=== PATIENT | male | born 2000 | race African-American/Black ===

== ENCOUNTER 2020-01-08 17:05 | Emergency (ER) | payer MEDICAID ==
[~2020-01-08] VITALS: Ht 142.2 cm; Wt 54.4 kg
[2020-01-08 17:05] VITALS: BP_SYST 125
--- NOTE | 2020-01-08 17:05 | NUR ---
Placed in room 5. Placed on cafeteria monitor, blood pressure machine and pulse oximeter. To gown for exam. Side rails up. Report given to KASHIF Bernstein.
--- NOTE | 2020-01-08 17:15 | NUR ---
DR ADORNO IN TO ASSESS. PT CALM, ALERT, COOPERATIVE, NO DISTRESS, REFERRING TO HIS VOICES "THEY"
--- NOTE | 2020-01-08 17:30 | NUR ---
LABS AND EKG COMPLETED
[2020-01-08 17:32] LABS: BASOPHILS % (AUTO) 0.5 % (0.0-2.0); EOSINOPHILS % (AUTO) 0.4 % (0.0-4.0); HEMATOCRIT 46.6 % (36-54); HEMOGLOBIN 14.9 g/dL (14.0-18.0); LYMPHOCYTES # (AUTO) 2.2 K/uL (1.0-5.5); LYMPHOCYTES % (AUTO) 42.5 % (20.5-51.5); MEAN CORPUSCULAR HEMOGLOBIN 27 pg (27-31); MEAN CORPUSCULAR HGB CONC 32 % (32-36); MEAN CORPUSCULAR VOLUME 86 fL (79.0-98.0); MONOCYTES # (AUTO) 0.4 K/uL (0.0-1.0); MONOCYTES % (AUTO) 8.3 % (1.7-9.3); NEUTROPHILS # (AUTO) 2.5 K/uL (1.8-7.7); NEUTROPHILS % (AUTO) 48.3 % (40.0-70.0); PLATELET COUNT (AUTO) 119 K/uL (130-430); RED BLOOD CELL COUNT(AUTO) 5.44 MIL/uL (4.2-6.2); RED CELL DISTRIBUTION WIDTH 13.9 % (9.0-15.0); WHITE BLOOD COUNT (AUTO) 5.2 K/uL (4.8-10.8)
--- NOTE | 2020-01-08 17:48 | NUR ---
UP AMBULATING TO BATHROOM, CALM, ALERT, NAD
[2020-01-08 17:53] LABS: ANION GAP 7 (5-15); CALCIUM 8.9 mg/dL (8.4-11.0); CHLORIDE 102 mmol/L (98-107); CREATININE 1.15 mg/dL (0.55-1.30); GLUCOSE 81 mg/dL (70-99); POTASSIUM 4.3 mmol/L (3.5-5.1); SODIUM SERUM 137 mmol/L (136-145); UREA NITROGEN, BLOOD 12 mg/dL (8-21)
[2020-01-08 17:59] LABS: ALANINE AMINOTRANSFERASE 23 U/L (12-78); ALBUMIN 3.9 g/dL (3.4-4.8); ASPARTATE AMINOTRANSFERASE 22 U/L (10-37); TOTAL BILIRUBIN 0.3 mg/dL (0.0-1.0)
[2020-01-08 18:09] LABS: ACETAMINOPHEN < 1 ug/mL (1-30); ALCOHOL, BLOOD < 3 mg/dL (<10); GFR AFRICAN AMERICAN 103 mL/min (>90)
--- NOTE | 2020-01-08 18:30 | NUR ---
PT IS CURRENTLY RECIVING PSYCH CONSULT BY [facility]
[2020-01-08 18:31] LABS: BARBITURATE, URINE NEGATIVE (NEG <=200); BENZODIAZEPINE, URINE POSITIVE (NEG <=150); CANNABINOID, URINE NEGATIVE (NEG <=50); COCAINE, URINE NEGATIVE (NEG <=150); METHAMPHETAMINES SCREEN,URINE NEGATIVE (NEG <=500); OPIATE, URINE NEGATIVE (NEG <=100); PHENCYCLIDINE SCREEN,URINE NEGATIVE (NEG <=25); UR TRICYCLIC ANTIDEPRESSANTS NEGATIVE (NEG <=300); URINE AMPHETAMINE NEGATIVE (NEG <=500); URINE METHADONE NEGATIVE (NEG <=200); URINE OXYCODONE SCREEN NEGATIVE (NEG <=100); URINE PROPOXYPHENE SCREEN NEGATIVE (NEG <=300)
[2020-01-08] MEDS ORDERED: OLANZapine 5 MG TABLET PO ONE (18:45)
--- NOTE | 2020-01-08 19:20 | NUR ---
Patient given written and verbal discharge instructions and verbalizes understanding. ER MD discussed with patient the results and treatment provided. Patient in stable condition. LEFT W/O FORMAL DISCHAGE PAPERWORK. CALM, ALERT, DENIES SI/HI. IN GOOD SPIRITS,
[2020-01-08 19:25] VITALS: BP_SYST 147
== END 2020-01-08 19:25 | disposition home or self-care (01) ==
LOC: SED 17:05
DX: F29 Unspecified psychosis not due to a substance or known physiological condition (principal)
CPT/HCPCS: 36415; 80053; 80307; 85025; 93005; 99284; G0480; G0481; G0482